=== PATIENT | female | born 1990 | race Caucasian/White ===

== ENCOUNTER 2020-04-09 07:35 | Outpatient (REF) | payer OTHER, SELFPAY ==
[2020-04-09 07:59] LABS: COVID-19 Test Negative (Negative)
[2020-04-15 14:12] LABS: COVID-19 Test Negative (Negative); IDNOW Serial# 55D5AD1C
[2020-04-22 09:35] LABS: COVID-19 Test Negative (Negative)
[2020-04-29 14:15] LABS: COVID-19 Test Negative (Negative); IDNOW Serial# 55D5AD1C
[2020-05-16 13:18] LABS: SARS-COV-2 PCR UMBRL Not Detected
[2020-05-26 09:41] LABS: SARS-COV-2 PCR UMBRL Not Detected
[2020-06-02 10:02] LABS: SARS-COV-2 PCR UMBRL Not Detected
[2020-06-05 11:16] LABS: SARS-COV-2 PCR UMBRL Not Detected
[2020-06-12 13:27] LABS: SARS-COV-2 PCR UMBRL Not Detected
[2020-06-13 11:13] LABS: COVID-19 Test Negative (Negative); IDNOW Serial# 55D5AD1C
[2020-06-19 08:23] LABS: SARS-COV-2 PCR UMBRL NEGATIVE
== END 2020-04-09 07:36 | disposition home or self-care (01) ==
LOC: HO.EMPCOV 07:35
PROVIDERS: Visit Provider Internal Medicine
DX: Z20.828 Contact with and (suspected) exposure to other viral communicable diseases (principal)
CPT/HCPCS: 36415; 87635; C9803; U0003

== ENCOUNTER 2020-05-22 13:06 | Outpatient (REF) | payer OTHER, SELFPAY ==
[2020-05-22 13:35] LABS: COVID-19 Test Negative (Negative); IDNOW Serial# 55D5AD1C
== END 2020-05-22 13:07 | disposition home or self-care (01) ==
LOC: HO.EMPCOV 13:06
PROVIDERS: Visit Provider Internal Medicine
DX: Z20.828 Contact with and (suspected) exposure to other viral communicable diseases (principal)
CPT/HCPCS: 87635; C9803

== ENCOUNTER 2020-07-21 10:30 | Outpatient (REF) | payer OTHER, SELFPAY ==
[2020-07-21 10:46] LABS: COVID-19 Test Negative (Negative); IDNOW Serial# 55D5AD1C
== END 2020-07-21 10:31 | disposition home or self-care (01) ==
LOC: HO.EMPCOV 10:30
PROVIDERS: Visit Provider Internal Medicine
DX: Z20.822 Contact with and (suspected) exposure to COVID-19 (principal)
CPT/HCPCS: 36415; 87635; C9803

== ENCOUNTER 2020-08-21 08:41 | Outpatient (REF) | payer OTHER, SELFPAY ==
[2020-08-21 09:08] LABS: COVID-19 Test Negative (Negative); IDNOW Serial# 55D5AD1C
== END 2020-08-21 08:42 | disposition home or self-care (01) ==
LOC: HO.EMPCOV 08:41
PROVIDERS: Visit Provider Internal Medicine
DX: Z20.822 Contact with and (suspected) exposure to COVID-19 (principal)
CPT/HCPCS: 36415; 87635; C9803; U0003

== ENCOUNTER 2025-01-14 15:11 | Outpatient (AMB) | payer OTHER, SELFPAY ==
--- NOTE | 2025-01-14 15:25 | MHC.OFFVIS ---
Vital Signs 01/14/25 15:26 Weight 117 lb 11.629 oz Intake Visit Reasons: Dr. Ramey/Septal defect prev dr maher pt Allergies sulfamethoxazole (From BACTRIM) Allergy (Mild, Unverified 02/14/20 19:17) DIFFICULTY BREATHING trimethoprim (From BACTRIM) Allergy (Mild, Unverified 02/14/20 19:17) DIFFICULTY BREATHING PFSH Social History (Updated 03/21/23 @ 09:44 by Dottie Angel Zeynep) Alcohol intake: never Patient Tobacco Use Status: Never used Tobacco Review of Systems ENT Reports dizziness Card Denies chest pain, Denies chest pain at rest, Denies chest pain with activity, Denies rapid heart rate, Denies pedal edema, Denies edema, Denies leg edema, Denies lightheadedness, Denies palpitations, Denies dyspnea, Denies dyspnea on exertion and Denies orthopnea Resp Denies cough, Denies dyspnea and Denies dyspnea on exertion GI Denies hematochezia and Denies change in stool character Musc Denies abnormal gait, Reports limited range of motion, Reports muscle cramps, Denies muscle weakness, Denies numbness, Denies radiating pain into limb, Denies stiffness and Denies tingling Neuro Denies abnormal gait, Reports dizziness, Denies numbness and Denies tingling Endo Denies palpitations Coding
[2025-01-14 15:26] VITALS: BP 110/80; PULSE 70
--- NOTE | 2025-01-14 15:28 | A.OFFVIS_ITS ---
Vital Signs 01/14/25 15:26 Weight 117 lb 11.629 oz BP 110/80 Blood Pressure Location Lt brachial Position Sitting Pulse 70 Pulse Source Monitor Intake Visit Reasons: Dr. 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 Ramey/Septal defect prev dr maher pt: Details: Brandi is a healthy 34-year-old female with reported history of PFO who presents for cardiology follow-up. Her last prior visit was in 2019. Today she presents for cardiology consultation. She reports that she is hoping to have a in the near future and she is concerned about her heart. She says she saw a manager pediatric when she was 16 after a heart murmur was identified. She says he told her she had a hole in her heart. It has not caused her any issues over the years. In 2019 she underwent evaluation for chest heaviness without reported cardiac findings. She says she was told at that time if may have been related to anxiety. That symptom has fully resolved. She does not get any chest discomfort at rest or with activity. She has no shortness of breath, no PND, orthopnea or edema. She had heart palpitations, brief, lasting seconds that occurred twice in the last year. No presyncope, syncope, neurological changes. She reports good activity tolerance and does a stair stepper 3 times a week for 20 minutes and uses a treadmill. She is getting on February 14. 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 [facility] Family History Father Stroke Paternal Grandfather Heart attack Mother Diabetes Diverticulosis Father Hypertension Social History Alcohol intake: never Patient Tobacco Use Status: Never used Tobacco Review of Systems Const All systems reviewed & are unremarkable except as noted in HPI and below ENT Denies dizziness Card Denies chest pain, Denies chest pain at rest, Denies chest pain with activity, Denies rapid heart rate, Denies pedal edema, Denies edema, Denies leg edema, Denies lightheadedness, Denies palpitations, Denies dyspnea, Denies dyspnea on exertion and Denies orthopnea Resp Denies cough, Denies dyspnea and Denies dyspnea on exertion GI Denies hematochezia and Denies change in stool character Musc Denies abnormal gait, Denies limited range of motion, Denies muscle cramps, Denies muscle weakness, Denies numbness, Denies radiating pain into limb, Denies stiffness and Denies tingling Neuro Denies abnormal gait, Denies dizziness, Denies numbness and Denies tingling Endo Denies palpitations Physical Exam Vital Signs: Last Vital Signs Pulse 70 01/14/25 15:26 BP 110/80 01/14/25 15:26 Const General: cooperative, healthy appearing, comfortable and no acute distress Orientation/consciousness: patient oriented x3 Neck Neck: Yes normal visual inspection Resp Effort & Inspection: normal respiratory effort Auscultation: clear to auscultation bilaterally, no rales, no rhonchi and no wheezes Cardio Rate: regular rate Rhythm: regular rhythm Heart sounds: S1 normal heart sound present, S2 normal heart sound present, no gallops, no murmurs and no rubs Neuro General: patient oriented x3 Extrem General: Yes normal to inspection and No no pedal edema Psych Appearance: grossly normal Mental Status: mental status grossly normal Speech and movement: Normal speech and movement present Office Procedures EKG Details: Today, read by me normal sinus rhythm, right axis, rate 70, Qtc 412ms [id number], Complete Assessment & Plan Assessment & Plan (1) PFO (patent foramen ovale): Code(s): Q21.12 - Patent foramen ovale Category: Medical Plan: Patient reports seeing manager pediatric age 16 and told she has hole in heart. Echocardiogram 04/10/2019 shows possible PFO, with [id number] shunt by color Dopplers otherwise normal study. Presumed PFO reviewed with her. She is anticipating in the near future. Will update echocardiogram with bubble study. Plan to call her with echo results. No indication for any medication management at this time. Cardiology follow-up 6 months, sooner if needed. Plan I discussed with the patient the presence of a Patent Foramen Ovale (PFO) and its implications for future . We reviewed the low risk of complications and the minimal likelihood of genetic transmission. I explained the echocardiogram with bubble study to assess the PFO and reassured her about the normal EKG findings. We agreed on a follow-up in six months to monitor her cardiac status, especially in anticipation of . I advised her to continue regular exercise and to report any new symptoms. The patient expressed understanding and relief after our discussion. Orders: Orders CA echo transthoracic complete Today Q21.12 - Patent foramen ovale Patient Instructions: - Schedule and complete the echocardiogram with bubble study. - Continue regular exercise and monitor for any new symptoms. - Follow up in six months for cardiac reassessment.. Patient was informed and verbally consented to the use of an ambient scribe for clinic note documentation during this visit. Visit time spent on chart review, interview, assessment, orders, documentation. Coding Level of Care Code New Pt Level 3 (73062) Complex EM visit Add On G2211 Diagnoses PFO (patent foramen ovale) Q21.12 CPT Codes EKG - CPT: 14248-[id number], Complete ([id number]) Time Spent (min) 26
--- OUTSIDE RECORDS SUMMARY | 2025-01-14 15:46 | XMS_ITS | Clinical Summary ---
Author Organization [facility] Address [address] [place] [phone] Phone Care Team Providers Care Wire Puller Name Role Phone Bakari Ramey MD Primary Care Provider Allergies Active Allergy Reactions Criticality Noted Date Comments Sulfamethoxazole-Trimethoprim Rash Medium 2021 Medications ondansetron (ZOFRAN) 4 MG tabletIndication s:Migraine with aura and without status migrainosus, not intractable Take 1 tablet (4 mg total) by mouth every 12 (twelve) hours as needed for nausea. 10 tablet 2 11/29/2022 Active SUMAtriptan (IMITREX) 5 mg/actuation nasal sprayIndications :Migraine with aura and without status migrainosus, not intractable 1 spray by Nasal route every 2 (two) hours as needed for migraine. 1 each 4 11/29/2022 Active Active Problems Problem Noted Date Diagnosed Date Bilateral impacted cerumen 12/28/2024 Septal defect, heart 03/13/2019 Assessment & Plan (03/13/2019 6:07 PM EDT): Diagnosis of septal defect was made when she was 15 but she could not say for his atrial or ventricle nonetheless we feel that she should have a cardiology follow-up with prior echocardiogram. This might be a 1 off office visit or could be periodic according to the chute puller's as per guidelines. Currently in my assessment of her today no signs of heart failure. 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 Echocardiogram and physical exam labs to be done at [employer] [facility]. Routine general medical exam ination at a health care facility 03/13/2019 Assessment & Plan (12/05/2023 4:18 PM EDT): Her exam positive for a little bit of cerumen impaction, neurological exam negative. Skin on her back positive for few moles but nothing suspicious appearing. We can see the patient back in 1 years time for repeat physical. She will take her labs to [facility] lipid profile CBC. Preferably fasting. Follow-up in 1 year for return physical. Assessment & Plan (11/29/2022 9:06 AM EDT): A little bit of cerumen in both ears but no impaction, otherwise few cisse angiomas, patient assured, otherwise normal physical exam. Patient will go to [facility] for physical exam labs including STD screening. We will follow-up with the patient in 1 years time for physical, referral to neurology regarding migraines. Assessment & Plan (03/13/2019 6:06 PM EDT): Physical exam was devoid of any pathology except for 2 tonsils of different shapes and sizes which she states has been with her since as long as she can remember. Also the murmur representing the septum defect. Patient had 2 small nevi one on her abdomen one on her back nothing suspicious appearing. Migraine with aura and witho ut status migrainosus, not intractable 03/13/2019 Assessment & Plan (12/28/2024 5:19 PM EDT): Migraines are still present but not more intense. Will continue to monitor the patient once yearly and refill the sumatriptan and Zofran as needed. Assessment & Plan (11/29/2022 9:05 AM EDT): Migraines treated with sumatriptan nasal spray, encourage patient to take Zofran as needed nausea associated with migraines. Patient did not want to take the propanolol for preventative measure, did not like the way it felt. Referral to [facility] neurology. Assessment & Plan (06/23/2021 9:59 AM EST): FMLA paperwork completed, the FMLA is for episodic flareups about 2 times per month each episode being about a day. We will fill out the paperwork to reflect that there are no changes. Total 15 minutes for this visit Assessment & Plan (07/30/2019 4:27 PM EST): Acute on chronic migraines usually 2/month with aura being the distracting component and coupled with nausea vomiting, at this point the sumatriptan is good for severe migraines but does cause some dizziness as a side effect. Let us trial now a course of propanolol as migraine prophylaxis start 60 mg extended release and then ramp up to 120 mg after about 4 weeks. Side effects such as orthostasis, bradycardia, dizziness and low blood pressure with nausea associated discussed with the patient. Patient counseled to drink plenty of water and for nausea associated with migraine Zofran will be prescribed. Additional 15 minutes were taken to fill out the FMLA paperwork to certify that the patient can be up to 2 days over the course of a 30-day. Out secondary to migraine symptoms. As such 30 minutes taken for this visit with greater than 50% in counseling the patient on FMLA paperwork as well as medication prophylaxis for migraines and counseling on medication. Assessment & Plan (03/13/2019 6:04 PM EDT): The migraines are classic with aura prodromal to the headaches with some mild nausea but no vomiting or not intractable she has not needed ER visits for these migraines and they occur perhaps every 2 weeks but usually just before periods. She would like to stay away from medication if possible but was amenable to treatment at the point of symptoms. Therefore we will trial her on Zomig nasal spray 5 mg 1 nostril and repeat after 2 hours if needed if no relief. We will regroup in 3 months to follow-up on this particular problem. We will do prior Auth if needed. Anxiety with limited-symptom attacks 03/13/2019 Assessment & Plan (03/13/2019 6:21 PM EDT): The patient since about 2 years has been having anxiety attacks that almost reach panic attacks but are not debilitating and allow her to work but still she would like to get behind the symptoms. She will work with someone from [facility] and get a referral to a licensed guide to find out possibly the cause of these anxiety attacks and follow a more holistic pathway to dealing with them. We will set up the referrals as needed. Encounters Date Type Department Care Team Description 12/28/2024 4:30 PM EDT Office Visit [facility] [address] [facility] [place] [address] Bakari Ramey MD Routine general medical examination at a health care facility (Primary Dx); Screening for human immunodeficiency virus; Septal defect, heart; Bilateral impacted cerumen; Migraine with aura and without status migrainosus, not intractable from Last 3 Months Immunizations Immunization Administration Dates Next Due COVID-19 (Pre-03/21) Pfizer Vaccine, mRNA, PF 06/11/2020,05/21/2020 Influenza Quadrivalent Preservative Free IM 02/28,03/27/2019,04/14/2018 Influenza Quadrivalent w/ Preservative IM 2017 Family History Medical History Relation Comments No Known Problems Brother Hyperlipidemia Father Hypertension Father Diabetes Maternal Grandmother Thyroid disease Mother Heart disease Paternal Grandfather No Known Problems Sister Relation Status Comments Brother Alive Father Alive Maternal Grandmother Mother Alive Paternal Grandfather Alive Sister Alive Social History Tobacco Use Types Packs/Day Years Used Date Smoking Tobacco: Never Smokeless Tobacco: Never Alcohol Use Standard Drinks/Week Comments Not Currently 0 (1 standard drink = 0.6 oz pur e alcohol) Once a month at most, rare Child or Family Care Answer Date Record ed Do you have problems with on e of the following making it difficult for you to work, study, or receive health care? No 12/28/2024 Education Answer Date Recorded Are you interested in help w ith more adult education (for example, completing high school, GED, job training, learning the [place] language, technical skills, or developing parenting skills)? No 12/28/2024 Are you concerned about learning? Not on file 12/28/2024 No 12/28/2024 Yes 12/28/2024 Food Answer Date Recorded Within the past 6 months we worried whether our food would run out before we got money to buy more. Never True 12/28/2024 Within the past 6 months the food we bought just didn't last and we didn't have enough money to get more. Never True Residential Stability Answer Date Recor ded What is your housing situation today? I have fidelia condon 12/28/2024 How many times have you move d in the past 12 months? Zero (I did not move) 12/28/2024 Paying for Meds Answer Date Recorded Do you have trouble paying for medicines? No 12/28/2024 Paying Utility Bills Answer Date Record ed Do you have trouble paying your heating or elect ricity bill? No 12/28/2024 Transportation Answer Date Recorded Has the lack of transportati on kept you from medical appointments or from getting medications? No 12/28/2024 Unemployment Answer Date Recorded Are you currently unemployed or working on a part-time or temporary basis, and looking for work? No 12/28/2024 Digital Access Answer Date Recorded No 12/28/2024 Yes 12/28/2024 Do you have reliable internet access at home? Ye s 12/28/2024 Do you have a device (e.g., phone, tablet, computer) with a working camera? Yes 12/28/2024 Intimate Partner Violence Answer Date R ecorded Denied Basic Needs Not on file 12/28/2024 In the past 12 months have y ou been in a relationship with a person who hurts, threatens, or tries to control you? No 12/28/2024 Worried food would run out Not on file 12/28 In the past 12 months have y ou been in a relationship with a person who hurts, threatens, or tries to control you? No 12/28/2024 Comments No Sex and Gender Information Value Date Recorded Sex Assigned at Not on file Legal Sex Female 2:19 PM EDT Gender Identity Not on file Sexual Orientation Not on file Last Filed Vital Signs Vital Sign Reading Time Taken Comments Blood Pressure 108/70 12/28/2024 4:43 PM EDT Pulse 71 12/28/2024 4:43 PM EDT Temperature 36.6 C (97.9 F) 12/05/2023 3:39 PM EDT Respiratory Rate 18 12/28/2024 4:43 PM EDT Oxygen Saturation 99% 12/28/2024 4:43 PM EDT Inhaled Oxygen Concentration - - Weight 54.5 kg (120 lb 3.2 oz) 12/28/2024 4:43 P M EDT Height 158.5 cm (5' 2.4 ) 12/28/2024 4:43 PM EDT Body Mass Index 21.7 12/28/2024 4:43 PM EDT Plan of Treatment Upcoming Encounters Date Type Department Care Team (Late st Contact Info) Description 01/06/2026 8:00 AM EDT Office Visit [facility] [address] [place] [address] Bakari Ramey MD [address] [place] [address] [email or web address] Health Maintenance Due Date Last Done Comments Adult Td,Tdap Booster 1990 HIV ONE-TIME SCREENING (18-6 5 YEARS) 2010 COVID-19 VACCINE (3 - 2023-2 5 season) 2024 06/11/2020, 05/21/2020 DEPRESSION SCREENING 12/28/2025 12/28/2024 PAP SMEAR 07/19/2027 07/19/2024 HEPATITIS C SCREENING Completed 11/29/2022 SMOKING STATUS SCREENING (On ce After 26 Yrs) Completed 12/28/2024 HEPATITIS A VACCINES Aged Out No long er eligible based on patient's age to complete this topic HIB VACCINES Aged Out No longer eligi ble based on patient's age to complete this topic MENINGOCOCCAL VACCINES (ACWY) Aged Out No longer eligible based on patient's age to complete this topic MENINGOCOCCAL VACCINES (B) Aged Out N o longer eligible based on patient's age to complete this topic PNEUMOCOCCAL VACCINES (0-49 years) Aged Out No longer eligible b ased on patient's age to complete this topic Medical Devices Not on file Procedures Procedure Name Priority Date/Time Associated Diagnosis Comments PAP TEST Routine 07/19/2024 12:00 AM EST from Last 3 Months or Most Recently Relevant to Health Maintenance Results * Pap Test (07/19/2024 12:00 AM EST) 07/19/2024 07/20/2024 9:0 7 AM EST Narrative SEE NARRATIVE - 07/26/2024 12:44 PM EST [address] [address] Chemist Enzymes: Chace Das MD MANAGER CONFIGURATION Cytology Report FINAL DIAGNOSIS A. PAP SMEAR (THIN PREP) CE: SPECIMEN ADEQUACY: Satisfactory for evaluation; transformation zone present. INTERPRETATION: NEGATIVE FOR INTRAEPITHELIAL LESION OR MALIGNANCY. This specimen was analyzed by the automated ThinPrep Imaging System ([employer] and manually rescreened by a colorer and/or pathologist. Electronically Signed Out By: BIANKA Drummond(ASCP) The Pap test is a screening test primarily for squamous cancers and precursors and has associated false-negative and false-positive results. New technologies such as liquid-based preparations may decrease but will not eliminate all false-negative results. Regular sampling and follow-up of unexplained clinical signs and symptoms are recommended to minimize false negative results. PROCEDURES/ADDENDA HPV Testing (Requested) Ordered Date: 07/20/2024 A. PAP SMEAR (THIN PREP) CE: High-risk HPV Panel w/ extended genotyping NEG HPV 16-NEG HPV 18-NEG HPV 45-NEG HPV 33/58-NEG HPV 31-NEG HPV 56/59/66-NEG HPV 51-NEG HPV 52-NEG HPV 35/39/68-NEG Performed by real-time polymerase chain reaction (PCR) at [address] using the FDA-approved BD Onclarity9 HPV Assay with extended genotyping. Uses of the assay in scenarios other than those approved by the FDA should be considered off-label use. The accuracy and precision of this test for all other off-label specimen sources has been verified in the Cytopathology Laboratory of the [facility] and has not been cleared or approved by the U.S. Food and Drug Administration. Clinical correlation is advised. The assay assesses the E6/E7 DNA target and utilizes human beta globin as an internal control. Cytology and HPV testing are screening assays and should not be used as the sole means of detecting cancer. False-positives and false-negatives can occur. CLINICAL HISTORY Date of Last Menstrual Period: 07-06-2024 Other Clinical Conditions: Screening Pap SPECIMEN SOURCE A: PAP SMEAR (THIN PREP) CE Patient Name: BRANDI HURTADO : 1990 (Age: 34) Sex: F Institution: [facility] Location: [facility] Date of Collection: 07/19/2024 Date of Reported: 07/26/2024 12:44 Results to: Cathy Neff MD us Cathy Neff MD CYTOLOGY ORDERABLES Final Resu lt SEE NARRATIVE from Last 3 Months or Most Recently Relevant to Health Maintenance Insurance [employer] ADMIN[employer]ATORS [employer]MIN[employer]AT[employer] [place] [address] [employer] [facility] [employer] [place] [employer] [place] [employer] Care Teams Wire Puller Relationship Specialty Start Date End Date Bakari Ramey MD [address] [place] [address] [email or web address] PCP - General Internal Medicine 06/18/21 Additional Source Comments The information contained in this document represents components of the legal health record. It is not the complete legal health record.[facility]
== END 2025-01-14 16:37 | disposition home or self-care (01) ==
LOC: HO.HCS 15:12
PROVIDERS: PCP Internal Medicine; Visit Provider Nurse Practitioner Family
DX: Q21.12 Patent foramen ovale (principal)
CPT/HCPCS: 93010; 99203

== ENCOUNTER → 2025-01-14 15:11 | Outpatient (BNVA) | payer OTHER, SELFPAY | PROVIDERS: PCP Internal Medicine; Visit Provider Nurse Practitioner Family | DX: Q21.12 Patent foramen ovale (principal) | CPT/HCPCS: 93005 ==

== ENCOUNTER → 2025-03-22 08:04 | Outpatient (REF) | payer SELFPAY ==
--- NOTE | 2025-03-22 08:07 | CA_ITS ---
Transthoracic Echocardiogram Patient (Last, First, Middle): Brandi Hurtado Grace Gender: F Date of : 1990 Age: 34 Procedure Date: 03/22/2025 Procedure Type: Transthoracic Echocardiogram Location: OP Height: 157.48 cm Weight: 53.07 kg BSA: 1.52 m2 Heart Rate: 67 bpm BP: 110 / 80 mmHg Internet [employer] Manager: SB Referring MD: Brianda Max [employer] ADVIS[employer] Computer Network Support Specialist: Sidney Ortega MD Symptoms: Q21.12 - Patent foramen ovale Study Quality: Adequate ECG Rhythm: Sinus Conclusions: - 1. Intra-atrial shunting suggestive of PFO 2. Otherwise normal study Findings Left Ventricle Normal left ventricular cavity size. There is normal left ventricular wall thickness. The left ventricular systolic function is hyperdynamic. The visually estimated ejection fraction is >70%. Diastolic function is normal for age. Right Ventricle Normal right ventricular cavity size and systolic function. Atria Both atria are normal in size. Contrast study for right to left shunting is mildly positive. Contrast study for right to left shunting is severely positive with Valsalva maneuver. Patent foramen ovale detected using by contrast. There is shunt reversal with the release phase of the Valsalva maneuver. No evidence of an atrial septal closure device. Aortic Valve Normal aortic valve structure and function. There is no aortic valve stenosis. There is no aortic valve regurgitation. Mitral Valve Normal mitral valve structure and function. There is trace mitral valve regurgitation. There is no mitral valve stenosis. Pulmonic Valve The pulmonic valve is likely normal. There is trace pulmonic valve regurgitation. Tricuspid Valve Normal tricuspid valve structure. There is trace tricuspid valve regurgitation. The right ventricular systolic pressure is normal. The right ventricular systolic pressure is 23 mmHg. Normal right atrial pressure. There is no evidence of pulmonary hypertension. Great Vessels All visible segments of the aorta are normal in size. The pulmonary artery was not well visualized. Venous The inferior vena cava is normal in size and collapses greater than 50% with inspiration. Pericardium/Pleural There is no evidence of pericardial effusion. Prior Study Comparison Changes noted compared to prior study dated: 04/10/2019. definitive interatrial shunting noted most suggestive of PFO Recommendations, Care & Conclusions Consider a MARLENY if clinically appropriate. Measurements 2D Linear Measurements IVSd: 0.73 0.6-0.9/0.6-1.0 cm LVIDd: 4.04 3.9-5.3/4.2-5.9 cm LVIDd Index: 2.66 2.4-3.2/2.2-3.1 cm/m2 LVIDs: 2.37 2.0-3.6 cm LVPWd: 0.65 0.7-1.1 cm LA Diam: 3.10 2.7-3.8/3.0-4.0 cm LAIDs Index: 2.04 1.5-2.3 cm/m2 LV Mass: 97.20 67-162/88-224 g LV Mass Index: 63.94 43-95/49-115 g/m2 LVOT Diam: 1.90 3.0+(-)1.3 cm 2D Systolic Function EF 4C: 66.60 >55% EF 2C: 80.50 >55% EF BiP: 74.80 >55% Mitral Valve MV Pk E: 1.25 MV PK A: 0.51 MV Decel Time: 173.00 E/A: 2.50 E'Lateral: 11.50 E'Medial: 11.40 E/E' Med: 11.00 E/E' Lat: 10.90 PHT: 51.00 MVA PHT: 4.31 Decel [place]: 7.23 Aortic Valve AoV Pk Chele: 1.12 AoV Pk Grad: 5.00 [place]: 2.84 LVOT LVOT Pk Chele: 1.12 LVOT Mn Chele: 0.70 LVOT VTI: 0.21 LVOT Pk Grad: 5.00 LVOT Mn Grad: 2.00 LVOT Diam: 1.90 LVOT Area: 2.84 Diastolic Function MV Pk E: 1.25 MV Pk A: 0.51 E/A: 2.50 E'Medial: 11.40 E/E' Med: 11.00 E' Laterial: 11.50 E/E' Lat: 10.90 Right Ventricle TAPSE (mm): 21.20 TVS' Chele: 11.50 Tricuspid Valve TR Pk Chele: 2.22 TR Pk Grad: 20.00 RA Press: 3.00 RVSP: 23.00 Great Vessels Aorta Sinus of Valsalva: 2.70 2.0-3.5 cm Ao Asc: 2.50 2.1-3.4 cm Ao Arch: 2.10 Ao Desc: 1.60 Pulmonary Veins Pulm Vein S/D 0.90 Pulmonary Valve PV Pk Chele: 0.98 Peak PV Grad: 4.00 Shunting QP:QS: 1.50 Updated in Other Vendor System with Status of Final Sidney Ortega MD electronically signed on 03/24/2025 12:37:09 PM with status of Final
== END ==
LOC: HO.CARD 08:04
PROVIDERS: PCP Internal Medicine; Visit Provider Nurse Practitioner Family
DX: Q21.12 Patent foramen ovale (principal)
CPT/HCPCS: 93306

== ENCOUNTER → 2025-03-22 08:07 | Outpatient (BNV) | payer OTHER, SELFPAY | PROVIDERS: PCP Internal Medicine; Visit Provider Internal Medicine Cardiovascular Disease | DX: Q21.12 Patent foramen ovale (principal) | CPT/HCPCS: 93306 ==